=== PATIENT | female | born 1960 | race Caucasian/White ===

== ENCOUNTER 2019-04-30 07:11 | Day surgery (SDC) | payer OTHER ==
[~2019-04-30] VITALS: Ht 165.1 cm; Wt 60.1 kg
[2019-04-30] MEDS ORDERED: ATORVASTATIN (08:08)
[2019-04-30] MEDS ORDERED: AMLODIPINE (08:08)
[2019-04-30 08:10] VITALS: Ht 165.1 cm; Wt 60.1 kg
[2019-04-30 09:19] VITALS: BP 142/74; PULSE 58; RESP 22
[2019-04-30] MEDS ORDERED: MIDAZOLAM 1 MG/ML 2 ML INJ ONE ×2 (09:57)
[2019-04-30] MEDS ORDERED: FENTAnyl 50 MCG/ML VIAL ONE (09:57)
[2019-04-30 10:08] VITALS: BP 127/78; PULSE 55; RESP 18
== END 2019-04-30 10:53 | disposition home or self-care (01) ==
LOC: GIL 07:11
PROVIDERS: ATTEND Internal Medicine Gastroenterology
DX: Z12.11 Encounter for screening for malignant neoplasm of colon (principal); K64.8 Other hemorrhoids; I10 Essential (primary) hypertension
CPT/HCPCS: 45378; J2250; J3010